=== PATIENT | female | born 1995 | race Caucasian/White ===

== ENCOUNTER 2018-08-22 01:37 | Emergency (ER) | payer OTHER, BC ==
[2018-08-22] MEDS: ONDANSETRON (ODT) 4 MG TAB ODT (02:22)
[2018-08-22] MEDS: HYDROCODONE/APAP (5/325) TAB PO (02:22)
== END 2018-08-22 03:54 | disposition home or self-care (01) ==
LOC: FTE 01:37
DX: M54.31 Sciatica, right side (principal)
CPT/HCPCS: 72131; 81025; 99284-25